=== PATIENT | female | born 1940 | race Caucasian/White ===

== ENCOUNTER 2016-10-04 20:02 | Inpatient (IN) | payer MEDICARE, OTHER ==
[2016-10-05] MEDS ORDERED: IPRATROPIUM/ALBUTEROL 0.5-2.5 MG/3 ML AMPUL NEB ONE ×3 (01:53→04:28)
[2016-10-05] MEDS ORDERED: BENZONATATE 100 MG CAPSULE PO ONE (01:53)
--- NOTE | 2016-10-05 01:55 | ER Document Report ---
ED Respiratory Problem - General Chief Complaint: Cough Stated Complaint: COUGH,FEVER Notes: Patient is a 76-year-old female that comes to the emergency department for chief complaint of cough, cough is productive, she states she had chills and felt like she was having a fever earlier, she states she is coughing up green sputum. She denies specific shortness of breath or chest pain, states she only has these when she is coughing. Patient denies history of smoking, COPD, asthma. Past history of hypertension, cardiovascular disease, patient denies [place]. Patient denies diabetes. Patient lives at home with her . TRAVEL OUTSIDE OF THE [place] IN LAST 30 DAYS: No - Related Data Allergies/Adverse Reactions: ciprofloxacin [From Cipro] Allergy (Verified 10/04/16 20:22) RASH metoclopramide HCl [From Reglan] Allergy (Verified 10/04/16 20:22) RASH Past Medical History - General Information source: Patient - Social History Smoking Status: Never Smoker Frequency of alcohol use: None Drug Abuse: None Lives with: Family Family History: Reviewed & Not Pertinent, Arthritis, CAD, CVA, Hyperlipidemia, Hypertension, Malignancy, Thyroid Disfunction Patient has suicidal ideation: No Patient has homicidal ideation: No - Past Medical History Cardiac Medical History: Reports: Hx Hypercholesterolemia, Hx Hypertension - MEDS Endocrine Medical History: Reports: Hx Diabetes Mellitus Type 2 Renal/ Medical History: Denies: Hx Peritoneal Dialysis GI Medical History: Reports: Hx Hiatal Hernia Psychiatric Medical History: Reports: Hx Depression Past Surgical History: Reports: Hx Hysterectomy - Immunizations Hx Diphtheria, Pertussis, Tetanus Vaccination: Yes Hx Pneumococcal Vaccination: 02/23/14 Review of Systems - Review of Systems Constitutional: See HPI EENT: No symptoms reported Cardiovascular: No symptoms reported Respiratory: See HPI Gastrointestinal: No symptoms reported Genitourinary: No symptoms reported Female Genitourinary: No symptoms reported Musculoskeletal: No symptoms reported Skin: No symptoms reported Hematologic/Lymphatic: No symptoms reported Neurological/Psychological: No symptoms reported Physical Exam - Vital signs Vitals: Temp Pulse Resp BP Pulse Ox 99.8 F 24 L 24 H 129/56 H 93 10/04/16 20:22 10/04/16 20:22 10/04/16 20:22 10/04/16 20:22 10/04/16 20:22 Interpretation: Normal - General General appearance: Appears well, Alert In distress: None - HEENT Head: Normocephalic, Atraumatic Eyes: Normal Pupils: PERRL - Respiratory Respiratory status: Tachypnea - Mild. No: Respiratory distress Breath sounds: Decreased air movement, Nonproductive cough, Rhonchi, Wheezing - Cardiovascular Rhythm: Regular. No: Tachycardia Heart sounds: Normal auscultation, S1 appreciated, S2 appreciated Murmur: No - Abdominal Inspection: Normal Distension: No distension Bowel sounds: Normal Tenderness: Nontender. No: Tender, Guarding - Back Back: Normal, Nontender - Extremities General upper extremity: Normal inspection, Nontender, Normal color, Normal ROM , Normal temperature General lower extremity: Normal inspection, Nontender, Normal color, Normal ROM , Normal temperature, Normal weight bearing. No: Ritesh's sign - Neurological Neuro grossly intact: Yes Cognition: Normal Orientation: AAOx4 [place] Coma Scale Eye Opening: Spontaneous [place] Coma Scale Verbal: Oriented [place] Coma Scale Motor: Obeys Commands [place] Coma Scale Total: 15 Speech: Normal Motor strength normal: LUE, RUE, LLE, RLE Sensory: Normal - Psychological Associated symptoms: Normal affect, Normal mood - Skin Skin Temperature: Warm Skin Moisture: Dry Skin Color: Normal Course - Re-evaluation Re-evalutation: On initial exam patient has mild tachypnea, rhonchi and wheezes throughout, she is not in distress, DuoNeb's and Solu-Medrol given, workup initiated. Chest x- ray suggesting bronchitis but no infiltrate is seen. Laboratory workup is generally unremarkable. On reevaluation patient has more tachypnea, she is not hypoxic on nasal cannula , wheezing and rhonchi appear to have increased. Patient given additional DuoNeb's, magnesium, antibiotics, will keep close evaluation. On reevaluation patient is now in mild respiratory distress with tachypnea, labored breathing, and she becomes intermittently hypoxic into the 80s even on nasal cannula. Patient immediately placed on BiPAP. Discussed with Dr. Cardenas. On BiPAP patient gradually began to have significant improvement, eventually she became very comfortable, lung sounds improved, hypoxia has resolved, tachypnea has resolved. Patient was discussed with hospitalist, Dr. Robbins, patient will be admitted to the [facility]. Patient is in full agreement with this. - Vital Signs Vital signs: Temp Pulse Resp BP Pulse Ox 98.3 F 75 22 H 115/48 L 94 04/13/17 08:00 10/05/16 05:26 10/05/16 08:00 10/05/16 08:00 10/05/16 08:00 - Laboratory Result Diagrams: 10/05/16 03:30 10/05/16 03:30 Laboratory results interpreted by me: 10/05/16 10/05/16 10/05/16 03:30 03:30 03:30 Hct 35.1 L VBG pH VBG pCO2 Potassium 5.1 H Carbon Dioxide 20 L BUN 23 H Glucose 124 H Direct Bilirubin 0.5 H AST 56 H ALT 56 H Creatine Kinase 286 H 10/05/16 05:45 Hct VBG pH 7.46 H VBG pCO2 30.8 L Potassium Carbon Dioxide BUN Glucose Direct Bilirubin AST ALT Creatine Kinase Critical Care Note - Critical Care Note Total time excluding time spent on procedures (mins): 35 - respiratory distress , wheezing, cough Comments: Please allow 35 minutes of critical care time for multiple re-evaluations and treatment of patient with developing respiratory distress including DuoNeb's, magnesium, steroids, oxygen, antibiotics, and eventually BiPAP therapy. Consultation and admission to the hospital. Discharge - Discharge Clinical Impression: Cough, Wheezing, Respiratory distress Admitting Provider: Hospitalist Unit Admitted: [facility]
[2016-10-05 03:49] LABS: ABSOLUTE BASOPHILS # (AUTO) 0.1 10^3/uL (0.0-0.2); ABSOLUTE EOSINOPHILS # (AUTO) 0.1 10^3/uL (0.0-0.6); ABSOLUTE LYMPHOCYTES (AUTO) 2.2 10^3/uL (0.5-4.7); ABSOLUTE MONOCYTES (AUTO) 0.8 10^3/uL (0.1-1.4); ABSOLUTE NEUT (AUTO) 6.9 10^3/uL (1.7-8.2); BASOPHILS % (AUTO) 0.6 % (0-2); EOSINOPHILS % (AUTO) 0.5 % (0-6); HEMATOCRIT 35.1 % (36.0-47.0); HEMOGLOBIN 12.3 g/dL (12.0-15.5); HGB HCT DIFFERENCE 1.8; LYMPHOCYTES % (AUTO) 21.6 % (13-45); MEAN CORPUSCULAR HEMOGLOBIN 32.9 pg (27.0-33.4); MEAN CORPUSCULAR HGB CONC 35.2 g/dL (32.0-36.0); MEAN CORPUSCULAR VOLUME 94 fl (80-97); MONOCYTES % (AUTO) 8.4 % (3-13); RED BLOOD COUNT 3.75 10^6/uL (3.72-5.28); SEGMENTED NEUTROPHILS % (AUTO) 68.9 % (42-78); WHITE BLOOD COUNT 10.1 10^3/uL (4.0-10.5)
[2016-10-05 04:05] LABS: ALANINE AMINOTRANSFERASE 56 U/L (9-52); ALBUMIN 4.3 g/dL (3.5-5.0); ALKALINE PHOSPHATASE 68 U/L (38-126); ANION GAP 17 (5-19); ASPARTATE AMINO TRANSFERASE 56 U/L (14-36); BILIRUBIN,DIRECT 0.5 mg/dL (0.0-0.4); BLOOD UREA NITROGEN 23 mg/dL (7-20); CARBON DIOXIDE 20 mmol/L (22-30); CHLORIDE 103 mmol/L (98-107); CREATININE RESULT 0.84 mg/dL (0.52-1.25); GLUCOSE 124 mg/dL (75-110); POTASSIUM 5.1 mmol/L (3.6-5.0); SODIUM 140.1 mmol/L (137-145); TOTAL PROTEIN 7.4 g/dL (6.3-8.2)
[2016-10-05] MEDS ORDERED: METHYLPREDNISOLONE INJ 125 MG/2 ML SDV IV ONE (04:27)
[2016-10-05] MEDS ORDERED: CEFTRIAXONE 1 GM/D5W RTU 50 ML IV ONE (04:28)
[2016-10-05] MEDS ORDERED: AZITHROMYCIN 250 MG TABLET PO ONE (04:29)
[2016-10-05] MEDS: MAGNESIUM SULFATE/D5W 100 ML IV SCH ×2 (05:55→06:29)
[2016-10-05 05:57] LABS: VENOUS BLOOD BASE EXCESS -1.3 mmol/L; VENOUS BLOOD HCO3 21.6 mmol/L (20-32); VENOUS BLOOD PCO2 30.8 mmHg (35-63); VENOUS BLOOD PH 7.46 (7.30-7.42)
[2016-10-05 06:23] LABS: CREATINE KINASE MB 1.19 ng/mL (<4.55)
[2016-10-05 06:25] LABS: TROPONIN I < 0.012 ng/mL
[2016-10-05] MEDS ORDERED: LEVALBUTEROL HCL NEB 1.25 MG/3 ML AMPUL NEB PRN (08:08)
[2016-10-05] MEDS ORDERED: ACETAMINOPHEN 325 MG TABLET PO PRN (08:08)
[2016-10-05] MEDS: NORMAL SALINE 1000 ML 1,000 ML IV PRN ×3 (08:49→21:54)
[2016-10-05] MEDS ORDERED: DEXTROSE 40% GEL 15 GM TUBE PO PRN ×2 (09:14)
[2016-10-05] MEDS ORDERED: DEXTROSE 50%-WATER 25 GM/50 ML DISP.SYRIN IV PRN ×2 (09:14)
[2016-10-05] MEDS ORDERED: GLUCAGON,HUMAN RECOMB 1 MG INJ IM PRN (09:14)
[2016-10-05] MEDS ORDERED: NORMAL SALINE 1000 ML 1,000 ML IV ONE (09:16)
[2016-10-05] MEDS ORDERED: ENOXAPARIN SODIUM INJ 40 MG/0.4 ML DISP.SYRIN SUBCUT ONE (09:30)
--- NOTE | 2016-10-05 09:32 | PDOC H&P ---
History of Present Illness Admission Date/PCP: 10/05/16 Dr. Vahid Fang History of Present Illness: CARMELA MORALES is a 76 year old female who presents to the emergency department with shortness of breath. Patient reports that she's had one week of a cough that's worsened over the last 48 hours. She reports that she's had a cough that 's been productive of green sputum, sinus congestion, and her cough is worsening. Patient does complain of muscle aching particularly after coughing. She reports that her secretions are thick and tenacious. She reports that she has been having some subjective fevers and chills. She denies any flulike symptoms. Patient is found to have respiratory distress at the emergency department required BiPAP. She is referred to hospital service for acute hypoxemic respiratory failure. Patient's medications are currently reconciled in the list in the computer is currently automatically generated by [employer]. Will reconcile these once they are appropriately placed. Past Medical History Cardiac Medical History: Reports: Atrial Fibrillation, Hyperlipidema, Hypertension - MEDS Pulmonary Medical History: Reports: Pneumonia EENT Medical History: Reports: Cataracts Endocrine Medical History: Reports: Diabetes Mellitus Type 2 GI Medical History: Reports: Hiatal Hernia Psychiatric Medical History: Reports: Depression Hematology: Denies: Anemia, Sickle Cell Disease Past Surgical History Past Surgical History: Reports: Hysterectomy, Orthopedic Surgery - back sx, Other - cataracts Denies: Amputation Social History Lives with: Spouse/Significant other Smoking Status: Never Smoker Frequency of Alcohol Use: None Hx Recreational Drug Use: No Hx Prescription Drug Abuse: No - Advance Directive Resuscitation Status: Do Not Resuscitate Surrogate healthcare decision maker:: Narendra Andrew, daughter Family History Family History: Arthritis, CAD, CVA, Hyperlipidemia, Hypertension, Malignancy, Thyroid Disfunction Parental Family History Reviewed: Yes Children Family History Reviewed: Yes Sibling(s) Family History Reviewed.: Yes Medication/Allergy Home Medications: Acyclovir [Zovirax 200 mg Capsule] 200 mg PO BID 11/27/12 Aspirin [Ecotrin 81 mg EC Tablet] 81 mg PO DAILY 11/27/12 Cyclobenzaprine HCl 10 mg PO QHS 11/27/12 Esomeprazole Magnesium [Nexium] 40 mg PO DAILY 11/27/12 Fenofibrate Nanocrystallized [Tricor 145 mg Tablet] 145 mg PO DAILY 06/05/13 Gabapentin [Neurontin 300 mg Capsule] 300 mg PO DAILY 11/27/12 Glucosamine Sulfate [Marisa] 1,500 mg PO DAILY 11/27/12 Sertraline HCl [Zoloft] 100 mg PO BID 11/27/12 Amlodipine Besylate 2.5 mg PO DAILY 06/06/14 Carvedilol [Coreg] 1 tab PO Q12 06/06/14 Docusate Sodium [Colace 100 mg Capsule] 100 mg PO BID 06/06/14 Lidocaine [Lidoderm 5% (700 mg) Transdermal Patch] 1 patch TP BID 06/06/14 Metaxalone [Skelaxin 800 mg Tablet] 800 mg PO TID 06/06/14 Pitavastatin Calcium [Livalo] 4 mg PO QHS 06/06/14 Ramipril [Altace 10 mg Capsule] 1 cap PO DAILY 06/06/14 Vit C/Vit E/Lutein/Min/Velma-3 [Ocuvite Softgel] 1 each PO DAILY 06/06/14 Albuterol Sulfate [Albuterol Sulfate Hfa] 1 - 2 puff IH Q4 PRN #1 [id number].[email or web address].[email or web address] Amox Tr/Potassium Clavulanate [Augmentin "500" Tablet] 1 tab PO Q8 #21 tablet 06/13/14 Azithromycin [Zithromax 250 mg Tablet] 500 mg PO DAILY #3 tablet 06/13/14 Prednisone [Deltasone 10 mg Tablet] 10 mg PO ASDIR PRN #21 tablet 06/13/14 Amox Tr/Potassium Clavulanate [Augmentin 875-125 Tablet] 1 tab PO BID 10 Days Epinephrine [Epipen 2-Wyatt] 0.3 mg IM ASDIR PRN #1 pkg 09/10/14 Allergies/Adverse Reactions: ciprofloxacin [From Cipro] Allergy (Verified 10/04/16 20:22) RASH metoclopramide HCl [From Reglan] Allergy (Verified 10/04/16 20:22) RASH Review of Systems Constitutional: PRESENT: chills, fatigue, fever(s), weakness. ABSENT: headache( s), weight gain, weight loss Eyes: ABSENT: visual disturbances Ears: ABSENT: hearing changes Nose, Mouth, and Throat: ABSENT: headache(s), sore throat Cardiovascular: ABSENT: chest pain, dyspnea on exertion, edema, orthropnea, palpitations Respiratory: PRESENT: cough, dyspnea, sputum. ABSENT: hemoptysis Gastrointestinal: PRESENT: constipation. ABSENT: abdominal pain, diarrhea, hematemesis, hematochezia, melena, nausea, vomiting Genitourinary: ABSENT: dysuria, hematuria Musculoskeletal: ABSENT: joint swelling Integumentary: ABSENT: rash, wounds Neurological: ABSENT: abnormal gait, abnormal speech, confusion, dizziness, focal weakness, syncope Psychiatric: ABSENT: anxiety, depression, homidical ideation, suicidal ideation Endocrine: ABSENT: cold intolerance, heat intolerance, polydipsia, polyuria Hematologic/Lymphatic: ABSENT: easy bleeding, easy bruising Physical Exam Vital Signs: Temp Pulse Resp BP Pulse Ox 98.3 F 75 22 H 115/48 L 94 10/05/16 08:00 10/05/16 05:26 10/05/16 08:00 10/05/16 08:00 10/05/16 08:00 Intake & Output 10/04/16 10/05/16 10/06/16 06:59 06:59 06:59 Weight 65.8 kg General appearance: PRESENT: mild distress, well-developed, well-nourished Head exam: PRESENT: atraumatic, normocephalic Eye exam: PRESENT: EOMI, PERRLA. ABSENT: conjunctival injection, conjunctiva pink - slight pallor, scleral icterus Ear exam: PRESENT: normal external ear exam Mouth exam: PRESENT: dry mucosa, tongue midline Neck exam: ABSENT: JVD, lymphadenopathy, thyromegaly, tracheal deviation Respiratory exam: PRESENT: accessory muscle use, chest wall tenderness, rhonchi , symmetrical, tachypnea, wheezes. ABSENT: decreased breath sounds, rales, retraction, unlabored Cardiovascular exam: PRESENT: RRR, +S1, +S2, systolic murmur - 2/6 sm RUSB. ABSENT: diastolic murmur, rubs Pulses: PRESENT: normal dorsalis pedis pul Vascular exam: PRESENT: normal capillary refill GI/Abdominal exam: PRESENT: normal bowel sounds, soft, tenderness - periumbilical. ABSENT: distended, firm, guarding, mass, Crocker's sign, organolmegaly, rebound, rigid Rectal exam: PRESENT: deferred Extremities exam: PRESENT: full ROM. ABSENT: calf tenderness, clubbing, pedal edema Neurological exam: PRESENT: alert, awake, oriented to person, oriented to place , oriented to time, oriented to situation, CN II-XII grossly intact. ABSENT: motor sensory deficit Psychiatric exam: PRESENT: appropriate affect, normal mood. ABSENT: homicidal ideation, suicidal ideation Skin exam: PRESENT: dry, intact, warm. ABSENT: cyanosis, rash Results Laboratory Results: 10/05/16 03:30 10/05/16 03:30 10/05/16 10/05/16 10/05/16 03:30 03:30 05:45 WBC 10.1 RBC 3.75 Hgb 12.3 Hct 35.1 L MCV 94 MCH 32.9 MCHC 35.2 RDW 13.0 Plt Count 198 Seg Neutrophils % 68.9 Lymphocytes % 21.6 Monocytes % 8.4 Eosinophils % 0.5 Basophils % 0.6 Absolute Neutrophils 6.9 Absolute Lymphocytes 2.2 Absolute Monocytes 0.8 Absolute Eosinophils 0.1 Absolute Basophils 0.1 VBG pH 7.46 H VBG pCO2 30.8 L VBG HCO3 21.6 VBG Base Excess -1.3 Sodium 140.1 Potassium 5.1 H Chloride 103 Carbon Dioxide 20 L Anion Gap 17 BUN 23 H Creatinine 0.84 Est GFR ( Amer) > 60 Est GFR (Non-Af Amer) > 60 Glucose 124 H Calcium 9.0 Total Bilirubin 1.0 AST 56 H ALT 56 H Alkaline Phosphatase 68 Total Protein 7.4 Albumin 4.3 10/05/16 10/05/16 03:30 05:45 Creatine Kinase 286 H CK-MB (CK-2) 1.19 Troponin I < 0.012 Impressions: Chest X-Ray 10/04/16 23:37 IMPRESSION: No consolidations or pleural effusions are identified. There is prominence of the bronchovascular markings extending into the left lung base which may represent peribronchial inflammatory changes. Other findings as noted above Assessment & Plan - Diagnosis (1) PNA (pneumonia) Qualifiers: Pneumonia type: due to unspecified organism Laterality: bilateral Lung location: unspecified part of lung Qualified Code(s): J18.9 - Pneumonia, unspecified organism Is this a current diagnosis for this admission?: YesPlan: Although not present on chest x-ray, patient clinically has rhonchi bilaterally and wheezing bilaterally. Suspect that patient has a early pneumonitis. Place patient on Rocephin and azithromycin for community-acquired pneumonia. Aggressive pulmonary toileting. Scheduled nebulized treatments. Pending sputum and blood cultures at this time. (2) Acute hypoxemic respiratory failure Is this a current diagnosis for this admission?: YesPlan: Patient is currently requiring BiPAP. Will use oxygen and BiPAP to maintain a sat greater than 94%. Will obtain ABG. (3) Bronchitis Is this a current diagnosis for this admission?: YesPlan: We'll place patient on solu Medrol 125 mg IV every 8 for her bronchitis component of her current infection. Patient is on scheduled nebulized treatments. Patient has an absence of structural lung disease. Patient has a CT done in 2013 which did not reveal any structural lung disease. Patient was never smoker. (4) Hypotension Qualifiers: Hypotension type: unspecified hypotension type Qualified Code(s): I95.9 - Hypotension, unspecified Is this a current diagnosis for this admission?: YesPlan: Patient normally is on several antihypertensives. Will give patient 1 L IV bolus and put patient on normal saline at 150 mL an hour. Will hold antihypertensives until patient's blood pressure has recovered. This is likely secondary to underlying infection. 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 (6) Transaminitis Is this a current diagnosis for this admission?: YesPlan: This was present on last admission in 2013. Patient record reviewed at that time for similar admission. Suspect fatty liver disease. Encourage patient to have this worked up as an outpatient. (7) A-fib Qualifiers: Atrial fibrillation type: unspecified Qualified Code(s): I48.91 - Unspecified atrial fibrillation Is this a current diagnosis for this admission?: YesPlan: Patient is currently in sinus. At this time, patient's medications remain on reconciled and will resume her antiarrhythmic as soon as able. likely would benefit from a anticoagulant as well. 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
[2016-10-05] MEDS: FAMOTIDINE 20 MG TABLET PO SCH ×2 (09:34→21:55)
[2016-10-05] MEDS: GUAIFENESIN 600 MG TABLET.SA PO SCH ×2 (09:34→21:55)
[2016-10-05] MEDS: CEFTRIAXONE 1 GM/D5W RTU 50 ML IV SCH (09:35)
[2016-10-05 09:47] LABS: ARTERIAL BLOOD BASE EXCESS -2.8 mmol/L; ARTERIAL BLOOD O2 SATURATION 86.9 % (94-98)
[2016-10-05 10:02] LABS: APPEARANCE,URINE CLEAR; BILIRUBIN,URINE NEGATIVE (NEGATIVE); GLUCOSE, URINE NEGATIVE (NEGATIVE); KETONES,URINE NEGATIVE (NEGATIVE); LEUKOCYTE ESTERASE,URINE NEGATIVE (NEGATIVE); NITRITE,URINE NEGATIVE (NEGATIVE); PROTEIN,URINE NEGATIVE (NEGATIVE); UROBILINOGEN,URINE NEGATIVE mg/dL (<2.0)
[2016-10-05] MEDS: AZITHROMYCIN 500 MG in DEXTROSE 5%-WATER 250 ML IV SCH ×2 (10:39→11:29)
[2016-10-05] MEDS: IPRATROPIUM/ALBUTEROL 0.5-2.5 MG/3 ML AMPUL NEB SCH ×3 (12:16→19:45)
[2016-10-05] MEDS: INSULIN LISPRO 100 UNIT/ML 3 ML VIAL SUBCUT PRN (16:16)
[2016-10-05] MEDS: METHYLPREDNISOLONE INJ 125 MG/2 ML SDV IV SCH ×2 (16:34→21:55)
[2016-10-06] MEDS: INSULIN LISPRO 100 UNIT/ML 3 ML VIAL SUBCUT PRN ×2 (00:22→14:17)
[2016-10-06 04:43] LABS: HEMATOCRIT 31.4 % (36.0-47.0); HGB HCT DIFFERENCE 1.6; MEAN CORPUSCULAR HEMOGLOBIN 32.6 pg (27.0-33.4); MEAN CORPUSCULAR HGB CONC 34.9 g/dL (32.0-36.0); MEAN CORPUSCULAR VOLUME 93 fl (80-97); RED BLOOD COUNT 3.36 10^6/uL (3.72-5.28); RED CELL DISTRIBUTION WIDTH 13.1 % (11.5-14.0); WHITE BLOOD COUNT 9.1 10^3/uL (4.0-10.5)
[2016-10-06 05:04] LABS: ANION GAP 13 (5-19); BLOOD UREA NITROGEN 17 mg/dL (7-20); CALCIUM 7.6 mg/dL (8.4-10.2); CARBON DIOXIDE 21 mmol/L (22-30); CHLORIDE 111 mmol/L (98-107); CREATININE RESULT 0.56 mg/dL (0.52-1.25); GLUCOSE 193 mg/dL (75-110); POTASSIUM 4.4 mmol/L (3.6-5.0); SODIUM 145.2 mmol/L (137-145)
[2016-10-06] MEDS: METHYLPREDNISOLONE INJ 125 MG/2 ML SDV IV SCH ×3 (05:25→22:52)
[2016-10-06] MEDS: NORMAL SALINE 1000 ML 1,000 ML IV PRN (05:25)
[2016-10-06] MEDS: IPRATROPIUM/ALBUTEROL 0.5-2.5 MG/3 ML AMPUL NEB SCH ×4 (08:56→20:32)
[2016-10-06] MEDS ORDERED: BUPROPION HCL 100 MG TABLET PO ONE (09:30)
[2016-10-06] MEDS ORDERED: (PENDING PHARMACY ID) (Calcium Carbonate/Vitamin D3 [Os-Cal 500-Vit D3 200 Caplet] 1 TAB) PO SCH (10:00)
[2016-10-06] MEDS ORDERED: (PENDING PHARMACY ID) (Bupropion Hcl [Bupropion Xl] 150 MG) PO SCH (10:00)
[2016-10-06] MEDS ORDERED: (PENDING PHARMACY ID) (Multivitamin [Multivitamins] 1 TAB) PO SCH ×2 (10:00)
[2016-10-06] MEDS ORDERED: LANSOPRAZOLE 30 MG TAB.RAP.DR PO SCH (10:00)
[2016-10-06] MEDS ORDERED: (PENDING PHARMACY ID) (Esomeprazole Mag Trihydrate [Nexium] 40 MG) PO SCH (10:00)
[2016-10-06] MEDS ORDERED: LUTEIN PO SCH (10:00)
[2016-10-06] MEDS ORDERED: VIT C PO SCH (10:00)
[2016-10-06] MEDS ORDERED: VIT E PO SCH (10:00)
[2016-10-06] MEDS ORDERED: OMEGA PO SCH (10:00)
[2016-10-06] MEDS: ENOXAPARIN SODIUM INJ 40 MG/0.4 ML DISP.SYRIN SUBCUT SCH (10:26)
[2016-10-06] MEDS: GUAIFENESIN SYRP 200 MG/10 ML UDC PO PRN ×3 (10:26→23:05)
[2016-10-06] MEDS: AZITHROMYCIN 500 MG in DEXTROSE 5%-WATER 250 ML IV SCH (10:27)
[2016-10-06] MEDS: GABAPENTIN 300 MG CAPSULE PO SCH (10:27)
[2016-10-06] MEDS: CEFTRIAXONE 1 GM/D5W RTU 50 ML IV SCH (10:27)
[2016-10-06] MEDS: FAMOTIDINE 20 MG TABLET PO SCH ×2 (10:28→22:48)
[2016-10-06] MEDS: ASPIRIN 81 MG TABLET, ENT COATED PO SCH (10:28)
[2016-10-06] MEDS: CARVEDILOL 12.5 MG TABLET PO SCH ×2 (10:28→22:51)
[2016-10-06] MEDS: CALCIUM CARBONATE 250 MG/VITAMIN D3 125 UNIT TABLET PO SCH ×2 (10:28→18:19)
[2016-10-06] MEDS: GUAIFENESIN 600 MG TABLET.SA PO SCH ×2 (10:28→22:48)
[2016-10-06] MEDS: MULTIVITAMIN TABLET PO SCH (10:28)
[2016-10-06] MEDS: SERTRALINE HCL 50 MG TABLET PO SCH (10:29)
[2016-10-06] MEDS: RAMIPRIL 10 MG CAPSULE PO SCH (10:29)
[2016-10-06] MEDS: ACYCLOVIR 200 MG CAPSULE PO SCH ×2 (10:30→23:05)
[2016-10-06] MEDS: HYDROCODONE BIT/HOMATROPINE 5-1.5 MG TABLET PO PRN ×2 (10:42→20:12)
[2016-10-06] MEDS: 1/2 NORMAL SALINE 1,000 ML IV PRN (10:42)
[2016-10-06] MEDS: BUPROPION HCL 100 MG TABLET PO SCH ×2 (14:15→22:48)
--- NOTE | 2016-10-06 16:32 | PDOC PROGRESS REPORT ---
Subjective Progress Note for:: 10/06/16 Subjective:: Patient continues to use BiPAP. She reports that that helps her breathe better. Patient denies chest pain, abdominal pain, nausea, vomiting, fevers, chills, diarrhea, constipation, headache, new onset weakness. Physical Exam Vital Signs: Temp Pulse Resp BP Pulse Ox 97.3 F 83 20 123/58 L 97 10/06/16 03:32 10/06/16 03:32 10/06/16 04:00 10/06/16 03:32 10/06/16 04:00 Pulse Oximeter Continuous Start: 10/05/16 08: 09 Freq: RTQ4 Status: Active Document 10/06/16 04:00 SFL (Rec: 10/06/16 05:31 [email or web address] [email or web address]) Pulse Oximetry Assessment Oxygen Saturation (92-100) 97 Oxygen Flow Rate (L/min) 50 Oxygen Delivery Method Bi-pap Equipment Usage Equipment in Use Continuous SpO2 Machine # 9 Intake & Output 10/05/16 10/06/16 10/07/16 06:59 06:59 06:59 Intake Total 2827 Output Total 400 Balance 2427 Weight 65.7 kg Exam: General: Awake alert and oriented x3, mild respiratory distress, tachypnea HEENT: AT/NC, PERRL, EOMI, oropharynx is moist, pink, no scleral icterus, no conjunctival injection Neck: No JVD, trachea midline Chest: Tachypnea, rhonchi bilaterally, no wheezes rhonchi or rales CV: Regular rate and rhythm, normal S1 and S2, no rub, or gallop; 2/6 sm rusb Abdomen: Soft, nontender to palpation, nondistended, active bowel sounds; no rebound, rigidity, or guarding Extremities: No cyanosis, clubbing or edema Neuro: Cranial nerves II through XII are grossly intact without focal deficits; awake alert and oriented x3 Psych: Normal mood and affect Results Laboratory Results: 10/06/16 04:13 10/06/16 04:13 10/05/16 10/05/16 10/06/16 09:15 09:25 04:13 WBC 9.1 RBC 3.36 L Hgb 11.0 L Hct 31.4 L MCV 93 MCH 32.6 MCHC 34.9 RDW 13.1 Plt Count 169 Carbonic Acid 1.09 HCO3/H2CO3 Ratio 19:1 ABG pH 7.39 ABG pCO2 36.2 ABG pO2 52.0 L ABG HCO3 21.6 ABG O2 Saturation 86.9 L ABG Base Excess -2.8 FiO2 50% Sodium Potassium Chloride Carbon Dioxide Anion Gap BUN Creatinine Est GFR ( Amer) Est GFR (Non-Af Amer) Glucose Calcium Urine Color YELLOW Urine Appearance CLEAR Urine pH 5.0 Ur Specific [place] 1.010 Urine Protein NEGATIVE Urine Glucose (UA) NEGATIVE Urine Ketones NEGATIVE Urine Blood MODERATE H Urine Nitrite NEGATIVE Ur Leukocyte Esterase NEGATIVE Urine WBC (Auto) 0 Urine RBC (Auto) 1 10/06/16 04:13 WBC RBC Hgb Hct MCV MCH MCHC RDW Plt Count Carbonic Acid HCO3/H2CO3 Ratio ABG pH ABG pCO2 ABG pO2 ABG HCO3 ABG O2 Saturation ABG Base Excess FiO2 Sodium 145.2 H Potassium 4.4 Chloride 111 H Carbon Dioxide 21 L Anion Gap 13 BUN 17 Creatinine 0.56 Est GFR ( Amer) > 60 Est GFR (Non-Af Amer) > 60 Glucose 193 H Calcium 7.6 L Urine Color Urine Appearance Urine pH Ur Specific [place] Urine Protein Urine Glucose (UA) Urine Ketones Urine Blood Urine Nitrite Ur Leukocyte Esterase Urine WBC (Auto) Urine RBC (Auto) Impressions: Chest X-Ray 10/04/16 23:37 IMPRESSION: No consolidations or pleural effusions are identified. There is prominence of the bronchovascular markings extending into the left lung base which may represent peribronchial inflammatory changes. Other findings as noted above Assessment & Plan - Diagnosis (1) PNA (pneumonia) Qualifiers: Pneumonia type: due to unspecified organism Laterality: bilateral Lung location: unspecified part of lung Qualified Code(s): J18.9 - Pneumonia, unspecified organism Is this a current diagnosis for this admission?: YesPlan: Patient on Rocephin and azithromycin day #2 for community-acquired pneumonia. Aggressive pulmonary toileting. Scheduled nebulized treatments. Pending sputum and blood cultures at this time. (2) Acute hypoxemic respiratory failure Is this a current diagnosis for this admission?: YesPlan: Patient is currently requiring BiPAP on and off. Will use oxygen and BiPAP to maintain a sat greater than 94%. (3) Bronchitis Is this a current diagnosis for this admission?: YesPlan: Decrease solu Medrol 80 mg IV every 8 for her bronchitis component of her current infection. On scheduled nebulized treatments. Patient has an absence of structural lung disease. Patient has a CT done in 2014 which did not reveal any structural lung disease. (4) Hypotension Qualifiers: Hypotension type: unspecified hypotension type Qualified Code(s): I95.9 - Hypotension, unspecified Is this a current diagnosis for this admission?: YesPlan: Likely secondary to sepsis. Patient normally is on several antihypertensives. Decrease IV fluids and change to half-normal normal saline. 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 (6) Transaminitis Is this a current diagnosis for this admission?: YesPlan: This was present on last admission in 2013. Patient record reviewed at that time for similar admission. Suspect fatty liver disease. Encourage patient to have this worked up as an outpatient. (7) A-fib Qualifiers: Atrial fibrillation type: unspecified Qualified Code(s): I48.91 - Unspecified atrial fibrillation Is this a current diagnosis for this admission?: YesPlan: Patient is currently in sinus. Patient on carvedilol - Time Time Spent with patient: 25-34 minutes Medications reviewed and adjusted accordingly: Yes
[2016-10-06] MEDS: BENZONATATE 100 MG CAPSULE PO PRN (18:19)
[2016-10-06] MEDS: ACETYLCYSTEINE 20% SOLN 800 MG/4 ML VIAL.NEB NEB SCH (20:31)
[2016-10-06] MEDS ORDERED: OSELTAMIVIR PHOSPHATE 75 MG CAPSULE PO ONE (21:30)
[2016-10-06] MEDS ORDERED: (PENDING PHARMACY ID) (Pitavastatin Calcium [Livalo] 4 MG) PO SCH (22:00)
[2016-10-06] MEDS ORDERED: OSELTAMIVIR PHOSPHATE 75 MG CAPSULE ONE (22:39)
[2016-10-06] MEDS: ATORVASTATIN CALCIUM 20 MG TABLET PO SCH (22:48)
[2016-10-06] MEDS: CYCLOBENZAPRINE HCL 10 MG TABLET PO SCH (22:50)
[2016-10-07] MEDS: 1/2 NORMAL SALINE 1,000 ML IV PRN (01:08)
[2016-10-07] MEDS: BENZONATATE 100 MG CAPSULE PO PRN ×2 (04:14→21:45)
[2016-10-07] MEDS: HYDROCODONE BIT/HOMATROPINE 5-1.5 MG TABLET PO PRN ×2 (04:14→21:43)
[2016-10-07 05:16] LABS: HEMATOCRIT 29.6 % (36.0-47.0); HEMOGLOBIN 10.3 g/dL (12.0-15.5); HGB HCT DIFFERENCE 1.3; MEAN CORPUSCULAR HEMOGLOBIN 32.6 pg (27.0-33.4); MEAN CORPUSCULAR HGB CONC 34.8 g/dL (32.0-36.0); MEAN CORPUSCULAR VOLUME 94 fl (80-97); RED BLOOD COUNT 3.16 10^6/uL (3.72-5.28); RED CELL DISTRIBUTION WIDTH 13.2 % (11.5-14.0); WHITE BLOOD COUNT 13.9 10^3/uL (4.0-10.5)
[2016-10-07 05:31] LABS: ANION GAP 13 (5-19); BLOOD UREA NITROGEN 16 mg/dL (7-20); CARBON DIOXIDE 23 mmol/L (22-30); CHLORIDE 109 mmol/L (98-107); CREATININE RESULT 0.56 mg/dL (0.52-1.25); GLUCOSE 132 mg/dL (75-110); POTASSIUM 4.2 mmol/L (3.6-5.0); SODIUM 144.9 mmol/L (137-145)
[2016-10-07] MEDS: METHYLPREDNISOLONE INJ 125 MG/2 ML SDV IV SCH ×2 (05:40→14:01)
[2016-10-07] MEDS: BUPROPION HCL 100 MG TABLET PO SCH ×3 (05:40→21:46)
[2016-10-07] MEDS: IPRATROPIUM/ALBUTEROL 0.5-2.5 MG/3 ML AMPUL NEB SCH ×2 (08:12→12:22)
[2016-10-07] MEDS: ACETYLCYSTEINE 20% SOLN 800 MG/4 ML VIAL.NEB NEB SCH ×2 (08:12→20:02)
[2016-10-07] MEDS: SERTRALINE HCL 50 MG TABLET PO SCH (09:57)
[2016-10-07] MEDS: RAMIPRIL 10 MG CAPSULE PO SCH (09:57)
[2016-10-07] MEDS: CARVEDILOL 12.5 MG TABLET PO SCH ×2 (09:57→21:45)
[2016-10-07] MEDS: ASPIRIN 81 MG TABLET, ENT COATED PO SCH (09:58)
[2016-10-07] MEDS: FAMOTIDINE 20 MG TABLET PO SCH ×2 (09:58→21:44)
[2016-10-07] MEDS: GUAIFENESIN 600 MG TABLET.SA PO SCH ×2 (09:58→21:44)
[2016-10-07] MEDS: CALCIUM CARBONATE 250 MG/VITAMIN D3 125 UNIT TABLET PO SCH ×2 (09:58→17:35)
[2016-10-07] MEDS: GABAPENTIN 300 MG CAPSULE PO SCH (09:59)
[2016-10-07] MEDS: CEFTRIAXONE 1 GM/D5W RTU 50 ML IV SCH (09:59)
[2016-10-07] MEDS: MULTIVITAMIN TABLET PO SCH (09:59)
[2016-10-07] MEDS: ACYCLOVIR 200 MG CAPSULE PO SCH ×2 (10:00→21:43)
[2016-10-07] MEDS: AZITHROMYCIN 500 MG in DEXTROSE 5%-WATER 250 ML IV SCH (10:00)
[2016-10-07] MEDS ORDERED: OSELTAMIVIR PHOSPHATE 75 MG CAPSULE PO SCH (10:00)
[2016-10-07] MEDS: ENOXAPARIN SODIUM INJ 40 MG/0.4 ML DISP.SYRIN SUBCUT SCH (10:00)
[2016-10-07] MEDS ORDERED: AMOXICILLIN TR/POT CLAVULANATE 500-125 MG TAB PO ONE (14:00)
--- NOTE | 2016-10-07 15:24 | PDOC PROGRESS REPORT ---
Subjective Progress Note for:: 10/07/16 Subjective:: Patient use BiPAP briefly overnight. Patient reports that her cough is bothersome and productive of thick, tenacious sputum. Patient denies chest pain, abdominal pain, vomiting, fevers, chills, diarrhea, constipation, headache, new onset weakness. Patient reports a bowel movement today. Patient reports nausea but no vomiting with medication administration today. Physical Exam Vital Signs: Temp Pulse Resp BP Pulse Ox 98.2 F 74 20 132/55 H 100 10/07/16 04:42 10/07/16 04:42 10/07/16 04:42 10/07/16 04:42 10/07/16 04:42 Pulse Oximeter Continuous Start: 10/05/16 08: 09 Freq: Status: Active Document 10/06/16 20:32 [facility] (Rec: 10/06/16 22:18 [facility] [email or web address]) Pulse Oximetry Assessment Oxygen Saturation (92-100) 95 Oxygen Flow Rate (L/min) 2.5 Oxygen Delivery Method Nasal Cannula Fraction of Inspired Oxygen (FIO2) 95 Equipment Usage Equipment Standby Continuous SpO2 Machine # [id number] Intake & Output 10/06/16 10/07/16 10/08/16 06:59 06:59 06:59 Intake Total 2827 3100 Output Total 400 Balance 2427 3100 Weight 65.7 kg 65.5 kg Exam: General: Awake alert and oriented x3, mild respiratory distress, mild tachypnea HEENT: AT/NC, PERRL, EOMI, oropharynx is moist, pink, no scleral icterus, no conjunctival injection Neck: No JVD, trachea midline Chest: Mild Tachypnea, rhonchi bilaterally, no wheezes or rales CV: Regular rate and rhythm, normal S1 and S2, no rub, or gallop; 2/6 sm rusb Abdomen: Soft, nontender to palpation, nondistended, active bowel sounds; no rebound, rigidity, or guarding Extremities: No cyanosis, clubbing or edema Neuro: Cranial nerves II through XII are grossly intact without focal deficits; awake alert and oriented x3 Psych: Normal mood and affect Results Laboratory Results: 10/07/16 04:35 10/07/16 04:35 10/07/16 10/07/16 04:35 04:35 WBC 13.9 H RBC 3.16 L Hgb 10.3 L Hct 29.6 L MCV 94 MCH 32.6 MCHC 34.8 RDW 13.2 Plt Count 190 Sodium 144.9 Potassium 4.2 Chloride 109 H Carbon Dioxide 23 Anion Gap 13 BUN 16 Creatinine 0.56 Est GFR ( Amer) > 60 Est GFR (Non-Af Amer) > 60 Glucose 132 H Calcium 8.0 L 10/05/16 09:15 Clean Catch Midstream Urine Culture - Final Mixed Urogenital Elvia 10/06/16 04:13 Creatine Kinase 181 H Impressions: Chest X-Ray 10/04/16 23:37 IMPRESSION: No consolidations or pleural effusions are identified. There is prominence of the bronchovascular markings extending into the left lung base which may represent peribronchial inflammatory changes. Other findings as noted above Assessment & Plan - Diagnosis (1) PNA (pneumonia) Qualifiers: Pneumonia type: due to Haemophilus influenzae Laterality: bilateral Lung location: unspecified part of lung Qualified Code(s): J14 - Pneumonia due to Hemophilus influenzae Is this a current diagnosis for this admission?: YesPlan: Patient with Haemophilus influenza pneumonia. Will stop Tamiflu which was started overnight. Place patient on Augmentin and stop Rocephin. Stop azithromycin. Continue aggressive pulmonary toileting including Mucomyst and nebulized treatments. Continue oxygen. Encourage use of incentive spirometry and flutter valve. (2) Acute hypoxemic respiratory failure Is this a current diagnosis for this admission?: YesPlan: Patient is currently requiring BiPAP on and off. Will use oxygen and BiPAP to maintain a sat greater than 94%. (3) Bronchitis Is this a current diagnosis for this admission?: YesPlan: Transition patient to prednisone for her bronchitis component of her current infection. On scheduled nebulized treatments. Patient has an absence of structural lung disease. Patient has a CT done in 2013 which did not reveal any structural lung disease. (4) Hypotension Qualifiers: Hypotension type: unspecified hypotension type Qualified Code(s): I95.9 - Hypotension, unspecified Is this a current diagnosis for this admission?: YesPlan: Likely secondary to sepsis. Patient normally is on several antihypertensives. Stop IV fluids. 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 Patient on carvedilol Will discuss with patient anticoagulation options. - Time Time Spent with patient: 25-34 minutes Medications reviewed and adjusted accordingly: Yes Anticipated discharge: Home Within: within 48 hours - Inpatient Certification Medical Necessity: Need Close Monitoring Due to Risk of Patient Decompensation, Need for Nebulizer Therapy and Monitoring of Response Post Hospital Care: D/C Reserve Officer Documentation
[2016-10-07] MEDS: PREDNISONE 20 MG TABLET PO SCH (17:35)
[2016-10-07] MEDS: IPRATROPIUM/ALBUTEROL 0.5-2.5 MG/3 ML AMPUL NEB PRN (20:02)
[2016-10-07] MEDS: AMOXICILLIN TR/POT CLAVULANATE 500-125 MG TAB PO SCH (21:42)
[2016-10-07] MEDS: ATORVASTATIN CALCIUM 20 MG TABLET PO SCH (21:43)
[2016-10-07] MEDS: CYCLOBENZAPRINE HCL 10 MG TABLET PO SCH (21:45)
[2016-10-07] MEDS: GUAIFENESIN SYRP 200 MG/10 ML UDC PO PRN (23:52)
[2016-10-08 05:04] LABS: HEMATOCRIT 32.8 % (36.0-47.0); HEMOGLOBIN 11.5 g/dL (12.0-15.5); HGB HCT DIFFERENCE 1.7; MEAN CORPUSCULAR HEMOGLOBIN 32.5 pg (27.0-33.4); MEAN CORPUSCULAR HGB CONC 35.1 g/dL (32.0-36.0); MEAN CORPUSCULAR VOLUME 93 fl (80-97); RED BLOOD COUNT 3.54 10^6/uL (3.72-5.28); RED CELL DISTRIBUTION WIDTH 13.1 % (11.5-14.0); WHITE BLOOD COUNT 14.1 10^3/uL (4.0-10.5)
[2016-10-08 05:29] LABS: ANION GAP 14 (5-19); BLOOD UREA NITROGEN 21 mg/dL (7-20); CALCIUM 8.7 mg/dL (8.4-10.2); CARBON DIOXIDE 25 mmol/L (22-30); CHLORIDE 104 mmol/L (98-107); CREATININE RESULT 0.64 mg/dL (0.52-1.25); GLUCOSE 135 mg/dL (75-110); POTASSIUM 4.4 mmol/L (3.6-5.0); SODIUM 142.8 mmol/L (137-145)
[2016-10-08] MEDS: BENZONATATE 100 MG CAPSULE PO PRN ×2 (06:09→21:06)
[2016-10-08] MEDS: AMOXICILLIN TR/POT CLAVULANATE 500-125 MG TAB PO SCH ×3 (06:09→21:05)
[2016-10-08] MEDS: BUPROPION HCL 100 MG TABLET PO SCH ×3 (06:10→21:05)
[2016-10-08] MEDS: HYDROCODONE BIT/HOMATROPINE 5-1.5 MG TABLET PO PRN ×2 (06:10→21:04)
[2016-10-08] MEDS: ACETYLCYSTEINE 20% SOLN 800 MG/4 ML VIAL.NEB NEB SCH ×2 (08:05→20:17)
[2016-10-08] MEDS: IPRATROPIUM/ALBUTEROL 0.5-2.5 MG/3 ML AMPUL NEB PRN ×2 (08:05→20:18)
[2016-10-08] MEDS: ASPIRIN 81 MG TABLET, ENT COATED PO SCH (09:04)
[2016-10-08] MEDS: RAMIPRIL 10 MG CAPSULE PO SCH (09:04)
[2016-10-08] MEDS: FAMOTIDINE 20 MG TABLET PO SCH ×2 (09:05→21:05)
[2016-10-08] MEDS: CARVEDILOL 12.5 MG TABLET PO SCH ×2 (09:05→21:06)
[2016-10-08] MEDS: CALCIUM CARBONATE 250 MG/VITAMIN D3 125 UNIT TABLET PO SCH ×2 (09:05→17:00)
[2016-10-08] MEDS: MULTIVITAMIN TABLET PO SCH (09:06)
[2016-10-08] MEDS: GABAPENTIN 300 MG CAPSULE PO SCH (09:06)
[2016-10-08] MEDS: PREDNISONE 20 MG TABLET PO SCH ×2 (09:06→17:00)
[2016-10-08] MEDS: SERTRALINE HCL 50 MG TABLET PO SCH (09:06)
[2016-10-08] MEDS: GUAIFENESIN 600 MG TABLET.SA PO SCH ×2 (09:06→21:06)
[2016-10-08] MEDS: ACYCLOVIR 200 MG CAPSULE PO SCH ×2 (09:07→21:04)
[2016-10-08] MEDS: GUAIFENESIN SYRP 200 MG/10 ML UDC PO PRN (09:07)
[2016-10-08] MEDS: ENOXAPARIN SODIUM INJ 40 MG/0.4 ML DISP.SYRIN SUBCUT SCH (09:07)
[2016-10-08] MEDS ORDERED: AZITHROMYCIN 250 MG TABLET PO SCH (10:00)
[2016-10-08] MEDS: INSULIN LISPRO 100 UNIT/ML 3 ML VIAL SUBCUT PRN ×3 (12:49→23:00)
--- NOTE | 2016-10-08 15:37 | PDOC PROGRESS REPORT ---
Subjective Progress Note for:: 10/08/16 Subjective:: Patient no longer using BiPAP. Patient reports that her cough is preventing her from sleeping. Patient denies chest pain, abdominal pain, vomiting, fevers, chills, diarrhea, constipation, headache, new onset weakness. Physical Exam Vital Signs: Temp Pulse Resp BP Pulse Ox 98.3 F 85 22 H 138/51 H 92 10/08/16 04:19 10/08/16 07:00 10/08/16 04:19 10/08/16 04:19 10/08/16 04:19 Pulse Oximeter Continuous Start: 10/05/16 08: 09 Freq: Status: Active Document 10/06/16 20:32 [facility] (Rec: 10/06/16 22:18 [facility] [email or web address]) Pulse Oximetry Assessment Oxygen Saturation (92-100) 95 Oxygen Flow Rate (L/min) 2.5 Oxygen Delivery Method Nasal Cannula Fraction of Inspired Oxygen (FIO2) 95 Equipment Usage Equipment Standby Continuous SpO2 Machine # [id number] Intake & Output 10/07/16 10/08/16 10/09/16 06:59 06:59 06:59 Intake Total 3100 1897 Balance 3100 1897 Weight 65.5 kg 69.3 kg Exam: General: Awake alert and oriented x3, no acute respiratory distress HEENT: AT/NC, PERRL, EOMI, oropharynx is moist, pink, no scleral icterus, no conjunctival injection Neck: No JVD, trachea midline Chest: Occasional rhonchi bilaterally, no wheezes or rales CV: Regular rate and rhythm, normal S1 and S2, no rub, or gallop; 2/6 sm rusb Abdomen: Soft, nontender to palpation, nondistended, active bowel sounds; no rebound, rigidity, or guarding Extremities: No cyanosis, clubbing or edema Neuro: Cranial nerves II through XII are grossly intact without focal deficits; awake alert and oriented x3 Psych: Normal mood and affect Results Laboratory Results: 10/08/16 03:52 10/08/16 03:52 10/08/16 10/08/16 03:52 03:52 WBC 14.1 H RBC 3.54 L Hgb 11.5 L Hct 32.8 L MCV 93 MCH 32.5 MCHC 35.1 RDW 13.1 Plt Count 204 Sodium 142.8 Potassium 4.4 Chloride 104 Carbon Dioxide 25 Anion Gap 14 BUN 21 H Creatinine 0.64 Est GFR ( Amer) > 60 Est GFR (Non-Af Amer) > 60 Glucose 135 H Calcium 8.7 10/06/16 04:13 Creatine Kinase 181 H Impressions: Chest X-Ray 10/04/16 23:37 IMPRESSION: No consolidations or pleural effusions are identified. There is prominence of the bronchovascular markings extending into the left lung base which may represent peribronchial inflammatory changes. Other findings as noted above Assessment & Plan - Diagnosis (1) PNA (pneumonia) Qualifiers: Pneumonia type: due to Haemophilus influenzae Laterality: bilateral Lung location: unspecified part of lung Qualified Code(s): J14 - Pneumonia due to Hemophilus influenzae Is this a current diagnosis for this admission?: YesPlan: Patient with Haemophilus influenza pneumonia. Patient now on Augmentin and azithromycin. Continue aggressive pulmonary toileting including Mucomyst and nebulized treatments. Continue oxygen. Encourage use of incentive spirometry and flutter valve. (2) Acute hypoxemic respiratory failure Is this a current diagnosis for this admission?: YesPlan: Patient is currently requiring BiPAP on and off. Will use oxygen and BiPAP to maintain a sat greater than 94%. Patient still requiring 4-5 L of oxygen. (3) Bronchitis Is this a current diagnosis for this admission?: YesPlan: Transition patient to prednisone for her bronchitis component of her current infection. On scheduled nebulized treatments. Patient has an absence of structural lung disease. Patient has a CT done in 2013 which did not reveal any structural lung disease. (4) Hypotension Qualifiers: Hypotension type: unspecified hypotension type Qualified Code(s): I95.9 - Hypotension, unspecified Is this a current diagnosis for this admission?: YesPlan: Likely secondary to sepsis. Patient normally is on several antihypertensives. Will re-add antihypertensives as tolerated. (5) DM type 2 (diabetes mellitus, type 2) Qualifiers: Diabetes mellitus complication status: with unspecified complications Diabetes mellitus care home insulin use: unspecified dedicated intermodal truck driver insulin use status Qualified Code(s): E11.8 - Type 2 diabetes mellitus with unspecified complications; Z79.4 - dedicated intermodal truck driver (current) use of insulin Is this a current diagnosis for this admission?: YesPlan: We'll place patient on sliding scale as she is currently receiving steroids (6) Transaminitis Is this a current diagnosis for this admission?: Yes (7) A-fib Qualifiers: Atrial fibrillation type: unspecified Qualified Code(s): I48.91 - Unspecified atrial fibrillation Is this a current diagnosis for this admission?: YesPlan: Patient is currently in sinus. Patient on carvedilol Consider Eliquis for anticoagulation. - Time Time Spent with patient: 25-34 minutes Medications reviewed and adjusted accordingly: Yes Anticipated discharge: Home Within: within 48 hours
[2016-10-08] MEDS ORDERED: AZITHROMYCIN 250 MG TABLET PO ONE (16:00)
[2016-10-08] MEDS: ZOLPIDEM TARTRATE 5 MG TABLET PO SCH (21:04)
[2016-10-08] MEDS: CYCLOBENZAPRINE HCL 10 MG TABLET PO SCH (21:05)
[2016-10-08] MEDS: ATORVASTATIN CALCIUM 20 MG TABLET PO SCH (21:06)
[2016-10-09] MEDS: AMOXICILLIN TR/POT CLAVULANATE 500-125 MG TAB PO SCH ×3 (05:15→21:07)
[2016-10-09] MEDS: BUPROPION HCL 100 MG TABLET PO SCH ×3 (05:15→21:07)
[2016-10-09] MEDS: IPRATROPIUM/ALBUTEROL 0.5-2.5 MG/3 ML AMPUL NEB PRN ×2 (07:57→19:56)
[2016-10-09] MEDS: ACETYLCYSTEINE 20% SOLN 800 MG/4 ML VIAL.NEB NEB SCH ×2 (07:57→19:56)
[2016-10-09] MEDS: GUAIFENESIN 600 MG TABLET.SA PO SCH ×2 (09:44→21:07)
[2016-10-09] MEDS: ASPIRIN 81 MG TABLET, ENT COATED PO SCH (09:44)
[2016-10-09] MEDS: AZITHROMYCIN 250 MG TABLET PO SCH (09:44)
[2016-10-09] MEDS: RAMIPRIL 10 MG CAPSULE PO SCH (09:44)
[2016-10-09] MEDS: CARVEDILOL 12.5 MG TABLET PO SCH ×2 (09:45→21:09)
[2016-10-09] MEDS: PREDNISONE 20 MG TABLET PO SCH (09:45)
[2016-10-09] MEDS: FAMOTIDINE 20 MG TABLET PO SCH ×2 (09:45→21:08)
[2016-10-09] MEDS: GABAPENTIN 300 MG CAPSULE PO SCH (09:45)
[2016-10-09] MEDS: CALCIUM CARBONATE 250 MG/VITAMIN D3 125 UNIT TABLET PO SCH ×2 (09:45→17:12)
[2016-10-09] MEDS: ACYCLOVIR 200 MG CAPSULE PO SCH ×2 (09:46→21:07)
[2016-10-09] MEDS: ENOXAPARIN SODIUM INJ 40 MG/0.4 ML DISP.SYRIN SUBCUT SCH (09:46)
[2016-10-09] MEDS: MULTIVITAMIN TABLET PO SCH (09:46)
[2016-10-09] MEDS: SERTRALINE HCL 50 MG TABLET PO SCH (09:46)
[2016-10-09] MEDS ORDERED: ALBUTEROL SULFATE HFA (90 MCG/PUFF) 200 PUFF/8.5 GM MDI IH PRN (14:58)
[2016-10-09] MEDS: INSULIN LISPRO 100 UNIT/ML 3 ML VIAL SUBCUT PRN ×2 (17:13→22:49)
--- NOTE | 2016-10-09 17:45 | PDOC PROGRESS REPORT ---
Subjective Progress Note for:: 10/09/16 Subjective:: Patient is feeling much better. Still having significant coughing. No nausea or vomiting nor diarrhea. No chills or fever. Room air oxygen at rest on 1 occasion reportedly less than 89%. Patient denies any chest pain. Denies any pleurisy as well. Physical Exam Vital Signs: Temp Pulse Resp BP Pulse Ox 97.9 F 66 18 127/55 H 92 10/09/16 15:53 10/09/16 15:53 10/09/16 15:53 10/09/16 15:53 10/09/16 15:53 Pulse Oximeter Continuous Start: 10/05/16 08: 09 Freq: Status: Complete Document 10/09/16 11:04 [facility] (Rec: 10/09/16 11:05 [facility] [id number]) Pulse Oximetry Assessment Equipment Usage Equipment Discontinued Continuous SpO2 Machine # 9 Intake & Output 10/08/16 10/09/16 10/10/16 06:59 06:59 06:59 Intake Total 1896 2045 600 Balance 1892045 600 Weight 69.3 kg 64.9 kg General appearance: PRESENT: no acute distress, cooperative Head exam: PRESENT: normocephalic Eye exam: PRESENT: EOMI Mouth exam: PRESENT: moist, neck supple Neck exam: ABSENT: JVD Respiratory exam: PRESENT: rhonchi - Minimal bilateral, unlabored. ABSENT: wheezes Cardiovascular exam: PRESENT: RRR. ABSENT: gallop GI/Abdominal exam: PRESENT: soft. ABSENT: distended, tenderness Extremities exam: ABSENT: pedal edema Skin exam: PRESENT: dry, warm. ABSENT: cyanosis Results Laboratory Results: 10/08/16 03:52 10/08/16 03:52 10/06/16 04:13 Creatine Kinase 181 H Impressions: Chest X-Ray 10/04/16 23:37 IMPRESSION: No consolidations or pleural effusions are identified. There is prominence of the bronchovascular markings extending into the left lung base which may represent peribronchial inflammatory changes. Other findings as noted above Assessment & Plan - Diagnosis (1) Acute hypoxemic respiratory failure Is this a current diagnosis for this admission?: Yes (2) PNA (pneumonia) Qualifiers: Pneumonia type: due to Haemophilus influenzae Laterality: bilateral Lung location: unspecified part of lung Qualified Code(s): J14 - Pneumonia due to Hemophilus influenzae Is this a current diagnosis for this admission?: Yes (3) DM type 2 (diabetes mellitus, type 2) Qualifiers: Diabetes mellitus complication status: with unspecified complications Diabetes mellitus long-term insulin use: unspecified long-term insulin use status Qualified Code(s): E11.8 - Type 2 diabetes mellitus with unspecified complications; Z79.4 - adjunct faculty for medical terminology (current) use of insulin Is this a current diagnosis for this admission?: Yes (4) Transaminitis Is this a current diagnosis for this admission?: Yes (5) A-fib Qualifiers: Atrial fibrillation type: unspecified Qualified Code(s): I48.91 - Unspecified atrial fibrillation Is this a current diagnosis for this admission?: Yes (6) Depression Qualifiers: Depression Type: unspecified Qualified Code(s): F32.9 - Major depressive disorder, single episode, unspecified Is this a current diagnosis for this admission?: Yes (7) Hiatal hernia Is this a current diagnosis for this admission?: Yes (8) Hyperlipidemia Qualifiers: Hyperlipidemia type: unspecified Qualified Code(s): E78.5 - Hyperlipidemia, unspecified Is this a current diagnosis for this admission?: Yes - Time Time Spent with patient: 25-34 minutes - Plan Summary Plan Summary: Continue antibiotics. Continue physical therapy. Discontinue steroids. Wean oxygen at 2 L nasal cannula. Patient wanting to go home, we will arrange for home oxygen as well as for home physical therapy with home health.
[2016-10-09] MEDS: ATORVASTATIN CALCIUM 20 MG TABLET PO SCH (21:07)
[2016-10-09] MEDS: CYCLOBENZAPRINE HCL 10 MG TABLET PO SCH (21:08)
[2016-10-09] MEDS: ZOLPIDEM TARTRATE 5 MG TABLET PO SCH (21:08)
[2016-10-10] MEDS: BUPROPION HCL 100 MG TABLET PO SCH (05:55)
[2016-10-10] MEDS: AMOXICILLIN TR/POT CLAVULANATE 500-125 MG TAB PO SCH (05:55)
[2016-10-10] MEDS: ACETYLCYSTEINE 20% SOLN 800 MG/4 ML VIAL.NEB NEB SCH (08:17)
[2016-10-10] MEDS: IPRATROPIUM/ALBUTEROL 0.5-2.5 MG/3 ML AMPUL NEB PRN (08:17)
[2016-10-10] MEDS: ENOXAPARIN SODIUM INJ 40 MG/0.4 ML DISP.SYRIN SUBCUT SCH (08:50)
[2016-10-10] MEDS: CALCIUM CARBONATE 250 MG/VITAMIN D3 125 UNIT TABLET PO SCH (10:11)
[2016-10-10] MEDS: ACYCLOVIR 200 MG CAPSULE PO SCH (10:11)
[2016-10-10] MEDS: MULTIVITAMIN TABLET PO SCH (10:11)
[2016-10-10] MEDS: SERTRALINE HCL 50 MG TABLET PO SCH (10:11)
[2016-10-10] MEDS: AZITHROMYCIN 250 MG TABLET PO SCH (10:11)
[2016-10-10] MEDS: RAMIPRIL 10 MG CAPSULE PO SCH (10:11)
[2016-10-10] MEDS: FAMOTIDINE 20 MG TABLET PO SCH (10:11)
[2016-10-10] MEDS: GABAPENTIN 300 MG CAPSULE PO SCH (10:11)
[2016-10-10] MEDS: ASPIRIN 81 MG TABLET, ENT COATED PO SCH (10:11)
[2016-10-10] MEDS: GUAIFENESIN 600 MG TABLET.SA PO SCH (10:11)
[2016-10-10] MEDS: CARVEDILOL 12.5 MG TABLET PO SCH (10:12)
--- NOTE | 2016-10-10 10:50 | PDOC DISCHARGE SUMMARY ---
General - Admit/Disc Date/PCP Admission Date/Primary Care Provider: 10/05/16 08:08 Discharge Date: 10/10/16 - Discharge Diagnosis (1) Acute hypoxemic respiratory failure Is this a current diagnosis for this admission?: Yes (2) PNA (pneumonia) Is this a current diagnosis for this admission?: Yes (3) DM type 2 (diabetes mellitus, type 2) Is this a current diagnosis for this admission?: Yes (4) Transaminitis Is this a current diagnosis for this admission?: Yes (5) A-fib Is this a current diagnosis for this admission?: Yes (6) Depression Is this a current diagnosis for this admission?: Yes (7) Hiatal hernia Is this a current diagnosis for this admission?: Yes (8) Hyperlipidemia Is this a current diagnosis for this admission?: Yes - Additional Information Resuscitation Status: Do Not Resuscitate Discharge Diet: Cardiac - low-fat low-salt, Diabetic - no concentrated sweets, Other (Comments) - increase oral fluid intake Discharge Activity: Activity As Tolerated, Balance Activity w/Rest, Slowly Increase Activity Home Medications: Acyclovir [Zovirax 200 mg Capsule] 200 mg PO BID 10/05/16 Aspirin [Aspirin EC] 81 mg PO DAILY 10/05/16 Bupropion HCl [Bupropion Xl] 150 mg PO DAILY 10/05/16 Calcium Carbonate/Vitamin D3 [Os-Tutu 500-Vit D3 200 Caplet] 1 tab PO BID Carvedilol [Coreg 12.5 mg Tablet] 12.5 mg PO Q12 10/05/16 Cyclobenzaprine HCl [Flexeril 10 mg Tablet] 10 g PO QHS 10/05/16 Esomeprazole Mag Trihydrate [Nexium] 40 mg PO DAILY 10/05/16 Gabapentin [Neurontin 300 mg Capsule] 300 mg PO DAILY 10/05/16 Multivitamin [Multivitamins] 1 tab PO DAILY 10/05/16 Pitavastatin Calcium [Livalo] 4 mg PO QHS 10/05/16 Ramipril [Altace 10 mg Capsule] 10 mg PO DAILY 10/05/16 Sertraline HCl [Zoloft] 100 mg PO DAILY 10/05/16 Vit C/Vit E/Lutein/Min/[employer] [place]-3 [Ocuvite Softgel] 1 tab PO DAILY 10/05/16 Albuterol Sulfate [Proair HFA Inhalation Aerosol 8.5 gm MDI] 2 puff IH Q4HP PRN #1 [email or web address] 10/09/16 Amox Tr/Potassium Clavulanate [Augmentin "500" Tablet] 1 tab PO Q8 #21 tablet 10/09/16 Benzonatate [Tessalon Perles 100 mg Capsule] 200 mg PO Q8HP PRN #40 capsule Additional Information: 1. Follow-up oxygen saturation as outpatient to determine continued use. 2. Return to the emergency room if symptoms recur or worsens. History of Present Illness Patient complains of: Shortness of breath History of Present Illness: CARMELA MORALES is a 76 year old female, who presents to the emergency room with shortness of breath that is worsening, after having 1 week history of worsening cough productive of greenish sputum, sinus congestion, generalized malaise, with associated subjective fever and chills. For details please refer to history and physical examination performed by the admitting physician. In the emergency room she was reportedly in respiratory distress and placed on BiPAP. Hospital Course Hospital Course: The patient was admitted to [facility] The patient was placed on BiPAP. Respiratory titrated the ventilator per protocol. She was placed on broad- spectrum antibiotics to cover for pneumonia, cultures were performed and sputum grew Haemophilus influenza. She was placed on bronchodilators due to wheezing and steroids. Eventually the patient significantly improved, BiPAP was transitioned to nasal cannula oxygen, and eventually intravenous antibiotic shifted to oral. Steroids was discontinued. Physical therapy was performed. Patient continues to improve and did well. She was requesting to be discharged and continue outpatient treatment of pneumonia. Her oxygen requirement was weaned. She was initially on 5 L nasal cannula and later on down to 2 L. Oxygen saturation on room air was performed showing less than 89% on room air at rest. service planner was therefore consulted for home oxygen, the rest of the hospital stay is unremarkable. She was discharged home improved, with instructions to return to the emergency room if symptoms recur or worsens, and to follow-up with primary care physician monitoring oxygen saturation and need for continued use. Physical Exam Vital Signs: Temp Pulse Resp BP Pulse Ox 99.2 F 83 18 143/62 H 95 10/10/16 07:36 10/10/16 08:19 10/10/16 08:19 10/10/16 07:36 10/10/16 08:19 Pulse Oximeter Continuous Start: 10/05/16 08: 09 Freq: Status: Complete Document 10/09/16 11:04 [facility] (Rec: 10/09/16 11:05 [facility] [id number]) Pulse Oximetry Assessment Equipment Usage Equipment Discontinued Continuous SpO2 Machine # 9 Intake & Output 10/09/16 10/10/16 10/11/16 06:59 06:59 06:59 Intake Total 2045 1679 Balance 2045 168 Weight 64.9 kg 64.7 kg General appearance: PRESENT: no acute distress, cooperative, other - Nasal cannula oxygen 2 L Head exam: PRESENT: normocephalic Eye exam: PRESENT: EOMI Mouth exam: PRESENT: moist, neck supple Neck exam: ABSENT: JVD Respiratory exam: PRESENT: clear to auscultation ken Cardiovascular exam: PRESENT: RRR. ABSENT: gallop GI/Abdominal exam: PRESENT: soft. ABSENT: distended, tenderness Extremities exam: ABSENT: pedal edema Neurological exam: PRESENT: alert, awake, oriented to situation Skin exam: PRESENT: dry, warm. ABSENT: cyanosis Results Laboratory Results: 10/08/16 03:52 10/08/16 03:52 10/06/16 04:13 Creatine Kinase 181 H Impressions: Chest X-Ray 10/04/16 23:37 IMPRESSION: No consolidations or pleural effusions are identified. There is prominence of the bronchovascular markings extending into the left lung base which may represent peribronchial inflammatory changes. Other findings as noted above Qualifiers PATEINT BEING DISCHARGED WITH ANY OF THE FOLLOWING DIAGNOSIS?: No Plan Discharge Plan: Follow-up with primary care physician in 5-7 days. Time Spent: Less than 30 Minutes
[2016-10-10 13:35] VITALS: BP 103/50
== END 2016-10-10 14:20 | disposition home health service (06) | DRG 193 ==
LOC: ER 20:02 → EH 10-05 08:08 → UNDOADMIN 10-05 08:16 → EH 10-05 08:16 → 3S 10-05 11:38
PROVIDERS: ADMIT Family Medicine; ATTEND Family Medicine
PROC: 5A09457 Assistance with Respiratory Ventilation, 24-96 Consecutive Hours, Continuous Positive Airway Pressure (ICD-10-PCS; principal; 2016-10-05)
PROC: 3E0F73Z Introduction of Anti-inflammatory into Respiratory Tract, Via Natural or Artificial Opening (ICD-10-PCS; 2016-10-05)
DX: J14 Pneumonia due to Hemophilus influenzae (principal); J96.01 Acute respiratory failure with hypoxia; Z66 Do not resuscitate; E11.8 Type 2 diabetes mellitus with unspecified complications; I48.91 Unspecified atrial fibrillation; F32.9 Major depressive disorder, single episode, unspecified; K44.9 Diaphragmatic hernia without obstruction or gangrene; E78.5 Hyperlipidemia, unspecified; I10 Essential (primary) hypertension; K59.00 Constipation, unspecified; I95.9 Hypotension, unspecified; Z98.42 Cataract extraction status, left eye; Z98.41 Cataract extraction status, right eye; Z90.710 Acquired absence of both cervix and uterus; Z79.82 Long term (current) use of aspirin; Z79.4 Long term (current) use of insulin; Z79.899 Other long term (current) drug therapy; Z88.3 Allergy status to other anti-infective agents; Z88.8 Allergy status to other drugs, medicaments and biological substances; Z82.61 Family history of arthritis; Z82.3 Family history of stroke; Z82.49 Family history of ischemic heart disease and other diseases of the circulatory system
CPT/HCPCS: 36415; 71020; 80048; 80053; 81001; 82550; 82553; 82803; 82962; 84484; 85025; 85027; 87040; 87070; 87077; 87086; 87205; 94640; 94660; 94667; 94668; 94762; 94799; 96365; 96367; 96375; 99291; J0456; J0696; J1650; J1815; J2930; J3475; J3490; J7030; J7060; J7512; J7620

== ENCOUNTER 2017-08-20 13:51 | Emergency (ER) | payer MEDICARE, OTHER ==
[2017-08-20] MEDS ORDERED: HYDROCODONE/ACETAMINOPHEN 5-325 MG TABLET PO ONE (15:45)
[2017-08-20] MEDS ORDERED: DIPH/PERTUSS(ACELL)/TETANUS VAC/PF 0.5 ML SYR (>=10YO) IM ONE (15:45)
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
[2017-08-20 16:56] VITALS: BP 135/88
== END 2017-08-20 16:56 | disposition home or self-care (01) ==
LOC: ER 13:51
DX: T14.8XXA Other injury of unspecified body region, initial encounter (principal); S80.11XA Contusion of right lower leg, initial encounter; Y00.XXXA Assault by blunt object, initial encounter; E11.9 Type 2 diabetes mellitus without complications; I10 Essential (primary) hypertension
CPT/HCPCS: 99284; 90471; 73590; 90715; A9270

== ENCOUNTER 2018-02-09 11:27 | Emergency (ER) | payer MEDICARE, OTHER ==
[2018-02-09] MEDS ORDERED: ACETAMINOPHEN 325 MG TABLET PO ONE (12:29)
--- NOTE | 2018-02-09 12:29 | ER Document Report ---
ED Medical Screen (RME) - General Chief Complaint: Fall Injury Stated Complaint: HEAD AND HIP PAIN Time Seen by Provider: 02/09/18 12:24 Mode of Arrival: Ambulatory Information source: Patient Notes: This is a 77-year-old female with a history of hypertension, diabetes, chronic low back pain who presents to the emergency room after tripping and falling in her garage. She landed on her face. There is no loss of consciousness. She does have obvious trauma to the face TRAVEL OUTSIDE OF THE [place] IN LAST 30 DAYS: No - Related Data Allergies/Adverse Reactions: ciprofloxacin [From Cipro] Allergy (Verified 02/09/18 11:28) RASH metoclopramide HCl [From Reglan] Allergy (Verified 02/09/18 11:28) RASH Past Medical History - Past Medical History Cardiac Medical History: Reports: Hx Atrial Fibrillation, Hx Hypercholesterolemia, Hx Hypertension - MEDS Pulmonary Medical History: Reports: Hx Pneumonia Endocrine Medical History: Reports: Hx Diabetes Mellitus Type 2 Renal/ Medical History: Denies: Hx Peritoneal Dialysis GI Medical History: Reports: Hx Hiatal Hernia Psychiatric Medical History: Reports: Hx Depression Past Surgical History: Reports: Hx Hysterectomy, Hx Orthopedic Surgery - back sx , Other - cataracts - Immunizations Hx Diphtheria, Pertussis, Tetanus Vaccination: Yes Physical Exam - Vital signs Vitals: Temp Pulse Resp BP Pulse Ox 98.9 F 79 16 190/92 H 96 02/09/18 11:33 02/09/18 11:33 02/09/18 11:33 02/09/18 11:33 02/09/18 11:33 Course - Vital Signs Vital signs: Temp Pulse Resp BP Pulse Ox 98.9 F 79 16 190/92 H 96 02/09/18 11:33 02/09/18 11:33 02/09/18 11:33 02/09/18 11:33 02/09/18 11:33 Doctor's Discharge - Discharge Referrals: YONG LEVI MD [Primary Care Provider] - Follow up as needed
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
--- NOTE | 2018-02-09 13:21 | RADIOLOGY REPORT (SQ) ---
EXAM DESCRIPTION: CT CERVICAL SPINE WITHOUT COMPLETED DATE/TIME: 02/09/2018 12:57 pm REASON FOR STUDY: fall, head injury COMPARISON: 04/14/2014 TECHNIQUE: Axial images acquired through the cervical spine without intravenous contrast. Images re viewed with lung, soft tissue and bone windows. Reconstructed coronal and sagittal MPR images review ed. Images stored on PACS. All CT scanners at this facility use dose modulation, iterative reconstruction, and/or weight based d osing when appropriate to reduce radiation dose to as low as reasonably achievable (ALARA). [facility]: Dose Right [facility]: CareDose [facility]: Dose Right [facility]: Teradose 4D [facility]: Smart [employer] RADIATION DOSE: CT Rad equipment meets quality standard of care and radiation dose reduction techniq ues were employed. CTDIvol: 21.6 mGy. DLP: 428 mGy-cm. mGy. LIMITATIONS: None. FINDINGS: ALIGNMENT: Unchanged minimal anterolisthesis of C4 on C5. Slightly progressed grade 1, 4 to 5 mm, anterolisthesis of C5 on C6. Alignment is otherwise anatomic. MINERALIZATION: Normal. VERTEBRAL BODIES: No fractures or dislocation. Redemonstration of a subcortical geode of the posteri or dens. DISCS: Mild multilevel loss of intervertebral disc space heights. FACETS, LATERAL MASSES, POSTERIOR ELEMENTS: No fractures. No dislocation. No acute findings. Progr essed moderate to severe facet arthropathy. HARDWARE: None in the spine. VISUALIZED RIBS: No fractures. LUNG APICES AND SOFT TISSUES: No significant or acute findings. OTHER: No other significant finding. IMPRESSION: 1. No acute fracture or dislocation. 2. Progressed mild degenerative disc disease and severe facet arthropathy of the cervical spine. 3. Slightly progressed grade 1 anterolisthesis of C5 on C6. Unchanged minimal anterolisthesis of C4 on C5. TECHNICAL DOCUMENTATION: JOB ID: [id number] Quality ID # [id number]: Final reports with documentation of one or more dose reduction techniques (e.g., Au tomated exposure control, adjustment of the mA and/or kV according to patient size, use of iterative reconstruction technique) 2010 [employer]- All Rights Reserved Reading location - IP/workstation name: [email or web address]
--- NOTE | 2018-02-09 13:22 | RADIOLOGY REPORT (SQ) ---
EXAM DESCRIPTION: HIP RIGHT AP/LATERAL COMPLETED DATE/TIME: 02/09/2018 12:59 pm REASON FOR STUDY: fall, right hip pain COMPARISON: Abdominal radiograph 06/07/2014 NUMBER OF VIEWS: Two views. TECHNIQUE: AP pelvis and additional frog-leg view of the right hip. LIMITATIONS: None. FINDINGS: MINERALIZATION: Normal. RIGHT HIP: No fracture or dislocation. No worrisome bone lesions. LEFT HIP: No fracture or dislocation. No worrisome bone lesions. PUBIS AND ISCHIUM: No fracture. PELVIS: No fracture. SACRUM: No fracture or dislocation. No worrisome bone lesions. LOWER LUMBAR SPINE: No fracture or dislocation. No worrisome bone lesions. Degenerative disc disease of the visualized lumbar spine. SOFT TISSUES: No findings. OTHER: No other significant finding. IMPRESSION: NEGATIVE STUDY OF THE RIGHT HIP. NO RADIOGRAPHIC EVIDENCE OF ACUTE INJURY. TECHNICAL DOCUMENTATION: JOB ID: [id number] [employer]- All Rights Reserved Reading location - IP/workstation name: [email or web address]
[2018-02-09] MEDS: DIPH/PERTUSS(ACELL)/TETANUS VAC/PF 0.5 ML SYR (>=10YO) IM ONE ×2 (13:24→13:28)
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
[2018-02-09 14:31] VITALS: BP 185/82
== END 2018-02-09 14:30 | disposition home or self-care (01) ==
LOC: ER 11:27
DX: S00.12XA Contusion of left eyelid and periocular area, initial encounter (principal); S70.11XA Contusion of right thigh, initial encounter; S80.811A Abrasion, right lower leg, initial encounter; R51 Headache; M25.559 Pain in unspecified hip; W01.0XXA Fall on same level from slipping, tripping and stumbling without subsequent striking against object, initial encounter; I10 Essential (primary) hypertension; E11.9 Type 2 diabetes mellitus without complications; Z88.1 Allergy status to other antibiotic agents; Z88.8 Allergy status to other drugs, medicaments and biological substances; R29.6 Repeated falls
CPT/HCPCS: 99284; 73502; 70450; 72125; A9270; 90715